=== PATIENT | female | born 1980 | race Caucasian/White ===

== ENCOUNTER 2022-08-20 21:13 | Emergency (ER) | payer MEDICAID, SELFPAY ==
[2022-08-20 21:14] VITALS: BP 109/52; PULSE 71; RESP 16; TEMP 36.5; O2SAT 92; BMI 21.9
[2022-08-20 21:37] VITALS: PULSE 71; O2SAT 95
--- NOTE | 2022-08-20 22:05 | CTR_ITS ---
PROCEDURE INFORMATION: Exam: CT Head Without Contrast Exam date and time: 08/20/2022 10:15 PM Age: 42 years old Clinical indication: Injury or trauma; Blunt trauma (contusions or hematomas); Patient HX: Syncopal episode with fall from standing at home. C/O neck and mid back pain. C collar in place. ; Additional info: Syncope, fall TECHNIQUE: Imaging protocol: Computed tomography of the head without contrast. Radiation optimization: All CT scans at this facility use at least one of these dose optimization techniques: automated exposure control; mA and/or kV adjustment per patient size (includes targeted exams where dose is matched to clinical indication); or iterative reconstruction. REPORTING DATA: Count of CT and Cardiac NM exams in prior 12 months: This patient has received 0 known CTs and 0 known cardiac nuclear medicine studies in the 12 months prior to the current study. COMPARISON: No relevant prior studies available. RADIATION DOSE METRICS: Total DLP (mGy-cm): 1096.33 FINDINGS: Brain: No hemorrhage. Unremarkable white matter. No mass effect. Preserved jensen-white interfaces. Cerebral ventricles: No ventriculomegaly. Paranasal sinuses: There is mucosal thickening and fluid throughout the visualized paranasal sinuses. Mastoid air cells: Visualized mastoid air cells are well aerated. No middle ear fluid. Bones/joints: Unremarkable. No acute fracture. Soft tissues: Unremarkable. CT/CT head wo con* [id number] IMPRESSION: 1. No evidence of acute intracranial hemorrhage, mass effect, or edema. 2. Extensive fluid and mucosal thickening throughout the paranasal sinuses.
--- NOTE | 2022-08-20 22:05 | CTR_ITS ---
PROCEDURE INFORMATION: Exam: CT Chest With Contrast; Diagnostic Exam date and time: 08/20/2022 10:23 PM Age: 42 years old Clinical indication: Injury or trauma; Generalized; Blunt trauma (contusions or hematomas); Prior surgery; Surgery date: 6+ months; Surgery type: Splenectomy; Patient HX: Syncopal episode with fall from standing at home. C/O neck and mid back pain. C collar in place. ; Additional info: Fall, syncope, lower back, abdominal, mid back pain TECHNIQUE: Imaging protocol: Diagnostic computed tomography of the chest with contrast. Radiation optimization: All CT scans at this facility use at least one of these dose optimization techniques: automated exposure control; mA and/or kV adjustment per patient size (includes targeted exams where dose is matched to clinical indication); or iterative reconstruction. Contrast material: OMNI 350; Contrast volume: 100 ml; Contrast route: INTRAVENOUS (IV); REPORTING DATA: Count of CT and Cardiac NM exams in prior 12 months: This patient has received 0 known CTs and 0 known cardiac nuclear medicine studies in the 12 months prior to the current study. COMPARISON: CT cervical spin wo con* [id number] 08/20/2022 10:20 PM RADIATION DOSE METRICS: Total DLP (mGy-cm): 1605.5 FINDINGS: Thyroid: There is a 3.5 mm hypoattenuation cystic mass seen in the posterior aspect right thyroid lobe likely representing a benign colloid cyst. Lungs: There is a background mild centrilobular emphysema. Pleural spaces: Unremarkable. No pneumothorax. No pleural effusion. Heart: Unremarkable. No cardiomegaly. No pericardial effusion. Coronary arteries: There are no coronary artery calcifications. Lymph nodes: There are mildly prominent mediastinal lymph nodes seen, the largest measuring 8.3 mm. Vasculature: Unremarkable. No aortic aneurysm. Bones/joints: Unremarkable. No acute fracture. Soft tissues: Unremarkable. COMMENTS: Consistent with the [employer]'s Incidental Findings Committee white paper (J Am Liban Radiol 2015): In patients aged 35 years and older with an incidental thyroid nodule equal to or greater than 1.[address], MRI or extrathyroidal US, further evaluation with dedicated thyroid US is recommended for patients with normal life expectancy and without comorbidities. For smaller nodules without suspicious features, no further evaluation or follow up is recommended. PROCEDURE INFORMATION: Exam: CT Abdomen And Pelvis With Contrast Exam date and time: 08/20/2022 10:23 PM Age: 42 years old Clinical indication: Injury or trauma; Generalized; Blunt trauma (contusions or hematomas); Prior surgery; Surgery date: 6+ months; Surgery type: Splenectomy; Patient HX: Syncopal episode with fall from standing at home. C/O neck and mid back pain. C collar in place. ; Additional info: Fall, syncope, lower back, abdominal, mid back pain TECHNIQUE: Imaging protocol: Computed tomography of the abdomen and pelvis with contrast. Radiation optimization: All CT scans at this facility use at least one of these dose optimization techniques: automated exposure control; mA and/or kV adjustment per patient size (includes targeted exams where dose is matched to clinical indication); or iterative reconstruction. Contrast material: OMNI 350; Contrast volume: 100 ml; Contrast route: INTRAVENOUS (IV); REPORTING DATA: Count of CT and Cardiac NM exams in prior 12 months: This patient has received 0 known CTs and 0 known cardiac nuclear medicine studies in the 12 months prior to the current study. COMPARISON: No relevant prior studies available. RADIATION DOSE METRICS: Total DLP (mGy-cm): 1605.5 FINDINGS: Liver: Normal. No mass. Gallbladder and bile ducts: Normal. No calcified stones. No ductal dilation. Pancreas: Normal. No ductal dilation. Spleen: The spleen is absent. There is a small intermediate density nodularity seen in the left upper quadrant measuring 12 mm in could represent a small splenule. Adrenal glands: Normal. No mass. Kidneys and ureters: Normal. No hydronephrosis. Stomach and bowel: Unremarkable. No obstruction. No mucosal thickening. Appendix: No evidence of appendicitis. Intraperitoneal space: Unremarkable. No free air. No significant fluid collection. Vasculature: Unremarkable. No abdominal aortic aneurysm. Lymph nodes: Unremarkable. No enlarged lymph nodes. Urinary bladder: Unremarkable as visualized. Reproductive: There is a 1.6 x 1.4 x 2.4 cm cystic mass seen within the right ovary likely representing a benign or functional ovarian cyst. Bones/joints: Unremarkable. No acute fracture. Soft tissues: Unremarkable. CT/CT chest abdpel w/*[id number] IMPRESSION: 1. There are no acute chest findings. 2. Mildly prominent mediastinal lymph nodes appear below CT criteria for lymphadenopathy. 3. Background of mild centrilobular emphysema 4. Small 3.5 mm cystic mass within the posterior aspect of the right thyroid lobe likely represents a benign colloid cyst. No follow-up is recommended. IMPRESSION: 1. There are no acute abdominal findings. 2. Absent spleen. Small soft tissue nodularity in the left upper quadrant measuring 12 mm may represent a small splenule. 3. Probable benign or functional right ovarian cyst measuring up to 2.4 cm. No further workup needed.
--- NOTE | 2022-08-20 22:05 | CTR_ITS ---
PROCEDURE INFORMATION: Exam: CT Cervical Spine Without Contrast Exam date and time: 08/20/2022 10:20 PM Age: 42 years old Clinical indication: Injury or trauma; Blunt trauma; Patient HX: Syncopal episode with fall from standing at home. C/O neck and mid back pain. C collar in place. ; Additional info: Syncope fall neck pain TECHNIQUE: Imaging protocol: Computed tomography of the cervical spine without contrast. Radiation optimization: All CT scans at this facility use at least one of these dose optimization techniques: automated exposure control; mA and/or kV adjustment per patient size (includes targeted exams where dose is matched to clinical indication); or iterative reconstruction. REPORTING DATA: Count of CT and Cardiac NM exams in prior 12 months: This patient has received 0 known CTs and 0 known cardiac nuclear medicine studies in the 12 months prior to the current study. COMPARISON: CT head wo con* [id number] 08/20/2022 10:15 PM RADIATION DOSE METRICS: Total DLP (mGy-cm): 198.97 FINDINGS: Bones/joints: There is no evidence of acute cervical spine fracture or malalignment. No significant degenerative change. Lungs: Emphysema noted at the lung apices. Thyroid: 4 mm right thyroid nodule. Soft tissues: Unremarkable. CT/CT cervical spin wo con* [id number] IMPRESSION: No evidence of acute cervical spine fracture or malalignment. COMMENTS: Consistent with the [employer]'s Incidental Findings Committee white paper (J Am Liban Radiol 2015): In patients aged 35 years and older with an incidental thyroid nodule equal to or greater than 1.[address], MRI or extrathyroidal US, further evaluation with dedicated thyroid US is recommended for patients with normal life expectancy and without comorbidities. For smaller nodules without suspicious features, no further evaluation or follow up is recommended.
[2022-08-20] MEDS: iohexol 350 mg/mL 500 mL Btl (per mL) IV (22:20)
--- NOTE | 2022-08-20 22:40 | ECG_ITS ---
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 Measurements Intervals [place] Rate: 76 P: 39 IN: 199 QRS: 42 QRSD: 94 T: 47 QT: 395 QTc: 447 Interpretive Statements SINUS RHYTHM No previous ECG available for comparison Electronically Signed On 08-21-2022 9:43:30 CDT by Ishan Jessica M.D. [id number]
--- NOTE | 2022-08-20 22:43 | ED_ITS ---
HPI - Syncope General: Chief Complaint: Syncope Stated Complaint: fall/sycopy Time Seen by Provider: 08/20/22 21:26 History of Present Illness: 42-year-old female who says she has had problems with syncopal episodes for the last 5 years or so. She presents after syncopal episode this evening. Evidently she had gotten out of the shower, she was not feeling well in the shower, she says her legs felt like lead . After getting out of the shower she collapsed. Her daughter heard her from the basement, and ran up to check on her. She was unconscious but breathing. Daughter states she did not turn blue. She was out for 7 minutes, she woke somewhat confused, but cleared quickly. There was no definite tonic-clonic activity during the witnessed portion of the syncopal episode Associated symptoms: Reports abdominal pain, headache(s) and nausea; Deny chest pain or fever(s) Review of Systems 2 Const: Denies: fever(s) Eyes: Denies: change in vision ENMT: Denies: throat pain Card: Denies: chest pain or palpitations Resp: Denies: dyspnea, productive cough or non-productive cough GI: Reports: abdominal pain and nausea; Denies: vomiting Musc: Reports: neck pain and back pain Neuro: Reports: headache(s) Physical Exam Const: COMMON NORMALS: no acute distress and alert GENERAL APPEARANCE: cooperative; not ill appearing and not frail appearing HENMT: COMMON NORMALS: normocephalic, atraumatic and Normal external nose present HEAD & SCALP: normocephalic and atraumatic FACE & SINUS: normal facial exam and face symmetric NOSE: Normal external nose present Eye: COMMON NORMALS: Equal, round and reactive pupils present and EOMs intact bilaterally PUPIL: Yes Equal, round and reactive pupils present Neck/C-Spine: GENERAL: Yes trachea midline Chest: CHEST: Yes Symmetrical chest wall rise Resp: COMMON NORMALS: normal respiratory effort, No retractions, No use of accessory muscles and clear to auscultation bilaterally AUSCULTATION: clear to auscultation bilaterally Cardio: COMMON NORMALS: regular rate and regular rhythm RATE: regular rate RHYTHM: regular rhythm GI: COMMON NORMALS: Normal to inspection, nondistended, normoactive bowel sounds present Back/Pelvis: OTHER: Patient had midline tenderness to the lower cervical spine. She has lower lumbar tenderness as well. She does have some chest wall tenderness. No deformities. Extremity: COMMON NORMALS: no pedal edema Neuro: [place] COMA SCALE: document GCS findings [place] coma scale eye opening: Spontaneous [place] coma scale verbal response: Orientated [place] coma scale motor response: Obey commands [place] coma scale total score: 15 SENSORIUM/ORIENTATION: Yes alert CRANIAL NERVES: Yes CN normal except as noted COORDINATION/BALANCE: gcyuxs-kb-jbwn test normal and lggw-ot-jyfu test normal SPEECH: speech normal SENSORY EXAM: Yes extremities (intact) MOTOR EXAM: Pronator motor function not present and Normal motor muscle tone present throughout COORDINATION: lfteqy-gz-apdb test normal and srrx-tt-kofx test normal Psych: COMMON NORMALS: speech normal SPEECH: Yes normal speech Skin: COMMON NORMALS: no rashes or lesions noted GENERAL SKIN EXAM: no alize hes or lesions noted Course Vital Signs: Vital signs: Vital Signs Temperature 97.7 F 08/20/22 21:14 Pulse Rate 70 08/21/22 00:35 Respiratory Rate 14 08/21/22 00:35 Blood Pressure 93/58 08/21/22 00:35 Pulse Oximetry 97 08/21/22 00:35 Oxygen Delivery Me thod Room Air 08/20/22 23:49 MDM - Syncope Medical Decision Making Head and cervical spine CTs are negative. There are no acute chest or belly findings either. Laboratory work-up shows a white blood cell count of 13, with sodium of 126. Her EKG was normal. Troponin normal. Her alcohol level significantly elevated at 184. Patient was counseled on results. Certainly co mbination of hyponatremia and elevated alcohol levels could cause syncopal episode. She was encouraged to follow-up to have her sodium rechecked. Toradol for pain. Lab Data 08/20/22 22:38 08/20/22 22:38 Radiology Impressions Cervical Spine CT 08/20/22 22:05 IMPRESSION: No evidence of acute cervical spine fracture or malalignment. COMMENTS: Consistent with the [employer]'s Incidental Findings Committee white paper (J Am Liban Radiol 2015): In patients aged 35 years and older with an incidental thyroid nodule equal to or greater than 1.[address], MRI or extrathyroidal US, further evaluation with dedicated thyroid US is recommended for patients with normal life expectancy and without comorbidities. For smaller nodules without suspicious features, no further evaluation or follow up is recommended. Chest/Abdomen/Pelvis CT 08/20/22 22:05 IMPRESSION: 1. There are no acute chest findings. 2. Mildly prominent mediastinal lymph nodes appear below CT criteria for lymphadenopathy. 3. Background of mild centrilobular emphysema 4. Small 3.5 mm cystic mass within the posterior aspect of the right thyroid lobe likely represents a benign colloid cyst. No follow-up is recommended. IMPRESSION: 1. There are no acute abdominal findings. 2. Absent spleen. Small soft tissue nodularity in the left upper quadrant measuring 12 mm may represent a small splenule. 3. Probable benign or functional right ovarian cyst measuring up to 2.4 cm. No further workup needed. Head CT 08/20/22 22:05 IMPRESSION: 1. No evidence of acute intracranial hemorrhage, mass effect, or edema. 2. Extensive fluid and mucosal thickening throughout the paranasal sinuses. Laboratory Results WBC 13.2 10^3/uL (4.0-10.0) H 08/20/22 22:38 RBC 3.75 10^6/uL (4.1-5.3) L 08/20/22 22:38 Hgb 11.7 g/dL (11.5-15.3) 08/20/22 22:38 Hct 34.5 % (37.0-47.0) L 08/20/22 22:38 MCV 92.0 fl (81-99) 08/20/22 22:38 MCH 31.2 pg (28.0-34.0) 08/20/22 22:38 MCHC 33.9 g/dL (30.0-36.0) 08/20/22 22:38 RDW 13.5 % (12.1-15.1) 08/20/22 22:38 Plt Count 357 10^3/cmm (130-400) 08/20/22 22:38 MPV 9.3 fL (7.4-10.4) 08/20/22 22:38 Neut % (Auto) 36.3 % 08/20/22 22:38 Lymph % (Auto) 50.5 % 08/20/22 22:38 [place] % (Auto) 7.4 % 08/20/22 22:38 Eos % (Auto) 4.8 % 08/20/22 22:38 Baso % (Auto) 0.8 % 08/20/22 22:38 Neut # (Auto) 4.82 10^3/uL (1.8-7.7) 08/20/22 22:38 Lymph # (Auto) 6.7 10^3/uL (0.8-4.8) H 08/20/22 22:38 [place] # (Auto) 1.0 10^3/uL (0.2-0.9) H 08/20/22 22:38 Eos # (Auto) 0.6 10^3/uL (0.0-0.8) 08/20/22 22:38 Baso # (Auto) 0.1 10^3/uL (0.0-0.1) 08/20/22 22:38 Nucleated RBC % (auto) 0 % 08/20/22 22:38 Nucleated RBCs # 0.0 /100WBC 08/20/22 22:38 Sodium 126 mmol/L (136-145) L 08/20/22 22:38 Potassium 3.7 mmol/L (3.5-5.1) 08/20/22 22:38 Chloride 95 mmol/L (98-107) L 08/20/22 22:38 Carbon Dioxide 22 mmol/L (22-29) 08/20/22 22:38 Anion Gap 12.7 (5-19) 08/20/22 22:38 BUN 4 mg/dL (6-20) L 08/20/22 22:38 Creatinine 0.5 mg/dL (0.5-0.9) 08/20/22 22:38 GFR Calculation 136.0 mL/min (90-130) H 08/20/22 22:38 Glucose 76 mg/dL (65-115) 08/20/22 22:38 Calculated Osmolality 258 mOsm/kg (285-295) L 08/20/22 22:38 Calcium 7.5 mg/dL (8.5-10.5) L 08/20/22 22:38 Phosphorus 3.5 mg/dL (2.5-4.5) 08/20/22 22:38 Magnesium 1.7 mg/dL (1.7-2.3) 08/20/22 22:38 Total Bilirubin 0.2 mg/dL (0.15-1.2) 08/20/22 22:38 AST 16 U/L (0-32) 08/20/22 22:38 ALT 12 U/L (0-33) 08/20/22 22:38 Alkaline Phosphatase 62 U/L (35-105) 08/20/22 22:38 Creatine Kinase 42 U/L (26-192) 08/20/22 22:38 Troponin T Baseline 7 ng/L (0-10) 08/20/22 22:38 Total Protein 5.6 g/dL (6.6-8.7) L 08/20/22 22:38 Albumin 3.9 g/dL (3.5-5.2) 08/20/22 22:38 Globulin 1.7 g/dL (1.3-4.6) 08/20/22 22:38 HCG, Qual Negative (Negative) 08/20/22 22:38 Urine Color Colorless (Yellow) 08/20/22 23:09 Urine Appearance Clear (CLEAR) 08/20/22 23:09 Urine pH 5 (5-7) 08/20/22 23:09 Ur Specific [place] 1.005 (1.005-1.030) 08/20/22 23:09 Urine Protein Neg (Negative) 08/20/22 23:09 Urine Glucose (UA) Norm (Normal) 08/20/22 23:09 Urine Ketones Negative (Negative) 08/20/22 23:09 Urine Blood Neg (Negative) 08/20/22 23:09 Urine Nitrate Negative (Negative) 08/20/22 23:09 Urine Bilirubin Neg (Negative) 08/20/22 23:09 Urine Urobilinogen Norm mg/dL (Negative) 08/20/22 23:09 Ur Leukocyte Esterase Negative (Negative) 08/20/22 23:09 Urine Opiates Screen Positive ng/mL (Negative) H 08/20/22 23:09 Ur Barbiturates Screen Negative ng/mL (Negative) 08/20/22 23:09 Ur Phencyclidine Scrn Negative ng/mL (Negative) 08/20/22 23:09 Ur Amphetamines Screen Negative ng/mL (Negative) 08/20/22 23:09 U Benzodiazepines Scrn Negative ng/mL (Negative) 08/20/22 23:09 Urine Cocaine Screen Negative ng/mL (Negative) 08/20/22 23:09 U Marijuana (THC) Screen Negative ng/mL (Negative) 08/20/22 23:09 Ethyl Alcohol 184 mg/dL (0-10) H 08/20/22 22:38 Discharge Plan Discharge Patient Disposition: Home Clinical Impression: Syncope, Acute hyponatremia Condition: Stable Prescriptions: New ketorolac 10 mg tablet 10 mg PO TID PRN (Reason: pain) Qty: 10 0RF Discharge Orders: Discharge ED (Routine); Ordered 08/20/22 Ordered By: Amado Donaldson Discharge Diet: Advance as tolerated Discharge Activity: Increase activity as tolerated Patient Instructions: Hyponatremia (ED), Syncope (ED), Alcohol Intoxication (ED) Coding Level of Care Code ED Propagator for Jammie Liz
[2022-08-20 22:47] LABS: Basophils # 0.1 10^3/uL (0.0-0.1); Basophils % 0.8 %; Eosinophils # 0.6 10^3/uL (0.0-0.8); Eosinophils % 4.8 %; Hematocrit 34.5 % (37.0-47.0); Hemoglobin 11.7 g/dL (11.5-15.3); Lymphocytes # 6.7 10^3/uL (0.8-4.8); Lymphocytes % 50.5 %; Mean Corpuscular HGB Conc 33.9 g/dL (30.0-36.0); Mean Corpuscular Hemoglobin 31.2 pg (28.0-34.0); Mean Platelet Volume 9.3 fL (7.4-10.4); Monocytes % 7.4 %; Neutrophils # 4.82 10^3/uL (1.8-7.7); Neutrophils % 36.3 %; Nucleated Red Blood Cells % 0 %; Platelet Count 357 10^3/cmm (130-400); Red Blood Count 3.75 10^6/uL (4.1-5.3); Red Cell Distribution Width 13.5 % (12.1-15.1); White Blood Count 13.2 10^3/uL (4.0-10.0)
[2022-08-20] MEDS: sodium chloride 0.9% 1,000 ML 999 ML IV (22:48)
[2022-08-20] MEDS: ondansetron 2 mg/ML SDV 2 mL 4 MG IVP (22:48)
[2022-08-20] MEDS: morphine 4 mg/mL SDV 1 mL IVP (22:48)
[2022-08-20 22:49] VITALS: BP 114/75; PULSE 88; RESP 16; O2SAT 96
[2022-08-20 22:54] LABS: HCG, Serum Qual Negative (Negative)
[2022-08-20 23:02] LABS: Alanine Aminotransferase 12 U/L (0-33); Albumin Level 3.9 g/dL (3.5-5.2); Alcohol Level 184 mg/dL (0-10); Alkaline Phosphatase 62 U/L (35-105); Anion Gap 12.7 (5-19); Aspartate Amino Transferase 16 U/L (0-32); Blood Urea Nitrogen 4 mg/dL (6-20); Calcium 7.5 mg/dL (8.5-10.5); Carbon Dioxide 22 mmol/L (22-29); Chloride 95 mmol/L (98-107); Creatine Phosphokinase 42 U/L (26-192); Globulin 1.7 g/dL (1.3-4.6); Glucose 76 mg/dL (65-115); Magnesium 1.7 mg/dL (1.7-2.3); Osmolality Calculated 258 mOsm/kg (285-295); Phosphorus 3.5 mg/dL (2.5-4.5); Potassium 3.7 mmol/L (3.5-5.1); Sodium 126 mmol/L (136-145); Total Bilirubin 0.2 mg/dL (0.15-1.2); Total Protein 5.6 g/dL (6.6-8.7); Troponin(5th) Baseline 7 ng/L (0-10)
[2022-08-20 23:14] LABS: Add Urine Microscopic? NO; Charge for UA Resulting for Rev
[2022-08-20 23:17] LABS: Bilirubin Urine Neg (Negative); Blood Urine Neg (Negative); Glucose Urine UA Norm (Normal); Ketones Urine Negative (Negative); Leukocyte Esterase Urine Negative (Negative); Nitrate Urine Negative (Negative); Protein Urine Neg (Negative); Specific Gravity, Urine 1.005 (1.005-1.030); Urine Appearance Clear (CLEAR); Urine Color Colorless (Yellow); Urobilinogen Urine Norm (Negative); pH Urine 5 (5-7)
[2022-08-20 23:19] VITALS: BP 92/59; PULSE 86; RESP 14; O2SAT 93
[2022-08-20 23:25] LABS: Amphetamines Screen Urine Negative (Negative); Barbiturates Screen Urine Negative (Negative); Benzodiazepines Screen Urine Negative (Negative); Cocaine Screen Urine Negative (Negative); Opiate Screen Urine Positive (Negative); PCP Screen Urine Negative (Negative); THC Screen Urine Negative (Negative)
[2022-08-20 23:49] VITALS: BP 90/59; PULSE 72; RESP 16; O2SAT 95
[2022-08-21] MEDS: ketorolac 30 mg/mL INJ IVP (00:15)
[2022-08-21 00:16] VITALS: RESP 16
[2022-08-21] MEDS: morphine 4 mg/mL SDV 1 mL IVP (00:16)
[2022-08-21 00:35] VITALS: BP 93/58; PULSE 70; RESP 14; O2SAT 97
== END 2022-08-21 00:36 | disposition home or self-care (01) ==
PROVIDERS: Emergency Provider Emergency Medicine
DX: R55 Syncope and collapse (principal); E87.1 Hypo-osmolality and hyponatremia
CPT/HCPCS: 36415; 70450; 71260; 72125; 74177; 80053; 80306; 80307; 81003; 82550; 83735; 84100; 84484; 84703; 85025; 93005; 96361; 96374; 96375; 96376; 99285; J1885; J2270; J2405; J7030; Q9967

== ENCOUNTER 2023-08-29 06:00 | Outpatient (RCR) | payer OTHER, MEDICAID, SELFPAY | END 2023-09-13 23:59 | disposition home or self-care (01) | LOC: MPT 06:00 | PROVIDERS: PCP Nurse Practitioner; Visit Provider Nurse Practitioner | DX: M51.36 Other intervertebral disc degeneration, lumbar region (principal) | CPT/HCPCS: 97110; 97162; G0283 ==

== ENCOUNTER 2023-08-29 06:00 | Outpatient (RCR) | payer OTHER, MEDICAID, SELFPAY | END 2023-09-13 23:59 | disposition home or self-care (01) | LOC: MPT 06:00 | PROVIDERS: PCP Nurse Practitioner; Visit Provider Nurse Practitioner | DX: I63.9 Cerebral infarction, unspecified (principal) | CPT/HCPCS: 97110; 97112; 97116; 97162 ==

== ENCOUNTER 2023-09-14 06:00 | Outpatient (RCR) | payer OTHER, MEDICAID, SELFPAY | END 2023-10-14 23:59 | disposition home or self-care (01) | LOC: MPT 06:00 | PROVIDERS: PCP Nurse Practitioner; Visit Provider Nurse Practitioner | DX: I63.9 Cerebral infarction, unspecified (principal); Z74.09 Other reduced mobility | CPT/HCPCS: 97110; 97112; 97116 ==

== ENCOUNTER 2023-09-14 06:00 | Outpatient (RCR) | payer OTHER, MEDICAID, SELFPAY | END 2023-10-14 23:59 | disposition home or self-care (01) | LOC: MPT 06:00 | PROVIDERS: PCP Nurse Practitioner; Visit Provider Nurse Practitioner | DX: M51.34 Other intervertebral disc degeneration, thoracic region (principal); M51.36 Other intervertebral disc degeneration, lumbar region | CPT/HCPCS: 97110; G0283 ==

== ENCOUNTER 2023-11-16 09:57 | Outpatient (CLI) | payer MEDICAID, SELFPAY ==
--- NOTE | 2023-11-16 11:15 | US_ITS ---
WS: [id number] Complete ABDOMINAL ULTRASOUND HISTORY: R11.0 - Nausea COMPARISON: None available. Liver: 14.2 cm in length. Normal size liver and echogenicity. No bile duct dilatation or mass. Portal Vein: Normal hepatopetal flow with monophasic waveform. Gallbladder: Normally distended gallbladder with no stones or wall thickening. CBD: 0.2 cm Pancreas: Normal size and echogenicity. Right kidney: 10.1 cm x 6.2 x 4.3 cm. Cortex:1.2 cm. Normal size and echogenicity. No hydronephrosis or mass. Left kidney: 9.5 cm x 4.8 cm x 5.4 cm. Cortex: 1.5 cm. Normal size and echogenicity. No hydronephrosis or mass. Spleen: Prior splenectomy. No mass in the splenic bed. Aorta and IVC: Unremarkable abdominal aorta and IVC. US/US abdomen complete* [id number] Impression: 1. Status post splenectomy. 2. The remaining abdomen ultrasound is negative.
== END 2023-11-16 09:58 | disposition home or self-care (01) ==
LOC: RAD 09:58
PROVIDERS: PCP Nurse Practitioner; Visit Provider Nurse Practitioner
DX: R11.0 Nausea (principal); Z98.890 Other specified postprocedural states
CPT/HCPCS: 76700

== ENCOUNTER → 2023-12-20 09:15 | Outpatient (BNVA) | payer MEDICAID, OTHER, SELFPAY | PROVIDERS: PCP Nurse Practitioner; Referring Provider Nurse Practitioner; Visit Provider Psychiatry & Neurology Neurology | DX: I63.9 Cerebral infarction, unspecified (principal) | CPT/HCPCS: 36415; 81241; 82306; 83090; 85210; 85613; 85730; 86146; 86147 ==

== ENCOUNTER → 2023-12-21 13:39 | Outpatient (BNVA) | payer OTHER, MEDICAID, SELFPAY | PROVIDERS: PCP Nurse Practitioner; Visit Provider Nurse Practitioner | DX: Z12.4 Encounter for screening for malignant neoplasm of cervix (principal) | CPT/HCPCS: 88175 ==

== ENCOUNTER 2024-01-02 12:31 | Outpatient (CLI) | payer MEDICAID, SELFPAY ==
--- NOTE | 2024-01-02 13:15 | MR_ITS ---
WS: [id number] MRA ANGIOGRAPHY [place] OF [place] HISTORY: I63.9 - Cerebral infarction, unspecified COMPARISON: None available. TECHNIQUE: 3-D MR angiography is performed of the [place]. All images are reviewed including source images. Distal vertebral and basilar arteries are intact with no significant stenosis or plaque. Mildly domin ant LEFT vertebral artery. Posterior cerebral arteries are normal course and caliber. Posterior commu nicating arteries are both patent., LEFT posterior communicating artery is hypoplastic. Intracranial portion of the internal carotid arteries are normal course and caliber. No significant a therosclerosis, stenosis or aneurysm identified. Middle and anterior cerebral arteries are both paten t with no significant disease. Anterior communicating artery is also normal. MR/MR angio head wo con [id number] IMPRESSION: Normal MRA [place].
== END 2024-01-02 12:32 | disposition home or self-care (01) ==
LOC: RAD 12:32
PROVIDERS: PCP Nurse Practitioner; Visit Provider Psychiatry & Neurology Neurology
DX: I63.9 Cerebral infarction, unspecified (principal)
CPT/HCPCS: 70544; 88175

== ENCOUNTER 2024-01-15 12:38 | Outpatient (CLI) | payer MEDICAID, SELFPAY ==
--- NOTE | 2024-01-15 13:30 | MM_ITS ---
WS: [id number] BILATERAL 3D TOMOSYNTHESIS DIGITAL DIAGNOSTIC MAMMOGRAPHY WITH CAD CLINICAL INFORMATION: N64.52 - Nipple discharge HISTORY: RIGHT nipple discharge COMPARISON: Baseline TECHNIQUE: Bilateral CC, MLO, and ML views. FINDINGS: The breasts are composed of heterogeneous fibroglandular density, which can limit the detection of sm all underlying mass lesions. Loosely clustered punctate calcifications LEFT breast. No suspicious marium mographic abnormality subareolar RIGHT breast. Ultrasound is pending. Cluster calcifications posterior LEFT breast near the chest wall. Recommend spot magnification views in further evaluation. ULTRASOUND BREAST RIGHT TECHNIQUE: Ultrasound right breast focused area of concern. CLINICAL INFORMATION: N64.52 - Nipple discharge FINDINGS: Ultrasound subareolar RIGHT breast. Incidental ductal ectasia subareolar RIGHT breast. No visualized intraductal lesions to target for biopsy. Simple cyst or dilated duct measuring 8 x 11 mm. No other s uspicious abnormalities. MM/MM diag BI tomosynthesis [id number] IMPRESSION: DENSITY: The breasts are heterogeneously dense, which may obscure small masses. BI-RADS: 0 - Incomplete: Need additional imaging evaluation FOLLOW UP: Need Additional Imaging Clustered calcifications posterior LEFT breast near the chest wall. Recommend s pot magnification views in further evaluation. No prior comparisons No suspicious abnormality subareolar RIGHT breast.
== END 2024-01-15 12:39 | disposition home or self-care (01) ==
LOC: RAD 12:39
PROVIDERS: PCP Nurse Practitioner; Visit Provider Nurse Practitioner
DX: N60.41 Mammary duct ectasia of right breast (principal); N60.01 Solitary cyst of right breast; R92.333 Mammographic heterogeneous density, bilateral breasts; R92.1 Mammographic calcification found on diagnostic imaging of breast; N64.52 Nipple discharge
CPT/HCPCS: 76642; 77062; G0279

== ENCOUNTER → 2024-02-13 15:33 | Outpatient (BNVA) | payer MEDICAID, SELFPAY | PROVIDERS: PCP Nurse Practitioner; Referring Provider Nurse Practitioner; Visit Provider Obstetrics & Gynecology | DX: Z32.01 Encounter for pregnancy test, result positive (principal); R87.610 Atypical squamous cells of undetermined significance on cytologic smear of cervix (ASC-US) | CPT/HCPCS: 80053; 83036; 84146; 84443; 85025 ==

== ENCOUNTER → 2024-03-04 13:59 | Outpatient (BNVA) | payer MEDICAID, SELFPAY | PROVIDERS: PCP Nurse Practitioner; Visit Provider Obstetrics & Gynecology | DX: R87.629 Unspecified abnormal cytological findings in specimens from vagina (principal) | CPT/HCPCS: 81025; 88305 ==

== ENCOUNTER → 2024-09-18 09:49 | Outpatient (BNVA) | payer OTHER, MEDICAID, SELFPAY | PROVIDERS: PCP Nurse Practitioner; Visit Provider Obstetrics & Gynecology | DX: R87.610 Atypical squamous cells of undetermined significance on cytologic smear of cervix (ASC-US) (principal) | CPT/HCPCS: 87624 ==

== ENCOUNTER → 2024-10-08 09:03 | Outpatient (BNVA) | payer OTHER, MEDICAID, SELFPAY | PROVIDERS: PCP Nurse Practitioner; Visit Provider Nurse Practitioner | DX: I63.9 Cerebral infarction, unspecified (principal) | CPT/HCPCS: 80053; 80061; 83036; 84443; 85025 ==